=== PATIENT | female | born 1940 | race Caucasian/White ===

== ENCOUNTER 2021-10-15 20:46 | Emergency (ER) | payer MEDICARE, OTHER ==
[~2021-10-15] VITALS: Ht 165.1 cm; Wt 63.2 kg
[2021-10-15 21:17] VITALS: TEMP 97.1
[2021-10-15 22:27] LABS: BASO % 0.4 % (0.0-2.0); EOS # 0.1 K/mm3 (0.0-0.7); EOS % 1.3 % (0.0-4.0); GRAN # 5.3 K/mm3 (1.4-6.5); GRAN % 74.6 % (42.2-75.2); HEMOGLOBIN 11.2 g/dl (12.5-16.0); LYMPH % 14.7 % (20.0-51.0); MEAN CELL VOLUME 89 fl (80.0-100.0); MEAN CORPUSCULAR HEMOGLOBIN 30 pg (27-31); MEAN CORPUSCULAR HGB CONC 34 g/dl (33.0-37.0); MEAN PLATELET VOLUME 10.2 fl (7.4-10.4); MONO # 0.6 K/mm3 (0.1-0.6); MONO % 8.9 % (1.7-9.3); PLATELET COUNT 286 K/mm3 (130-400); RED BLOOD COUNT 3.74 M/mm3 (4.10-5.30); REDCELL DISTRIBUTION WIDTH-CV 12.7 % (11.5-14.5)
[2021-10-15 22:29] LABS: HEMATOCRIT 33.4 % (37.0-47.0)
[2021-10-15 22:39] LABS: ALBUMIN 3.3 gm/dL (3.4-4.8); BILIRUBIN,TOTAL 0.4 mg/dL (0.2-1.2); CALCIUM 8.3 mg/dL (8.4-10.2); CREATININE, serum 0.82 mg/dL (0.57-1.11); POTASSIUM 4.3 mmol/L (3.5-4.5); TOTAL PROTEIN 5.7 gm/dL (6.2-8.1)
[2021-10-16 00:31] LABS: COLLECTION METHOD CLEAN CATCH
[2021-10-16 00:44] LABS: PH 7 (5-8); SQUAMOUS EPITHELIAL None Seen /hpf (0-10); URINE APPEARANCE Clear (CLEAR/HAZY); URINE BACTERIA None Seen /hpf (NONE SEEN); URINE BILIRUBIN Negative (NEGATIVE); URINE BLOOD Negative (NEGATIVE); URINE COLOR Yellow (YELLOW); URINE GLUCOSE Negative (NEGATIVE); URINE KETONE Trace (NEGATIVE); URINE LEUKOCYTE ESTERASE Negative (NEGATIVE); URINE NITRATE Negative (NEGATIVE); URINE PROTEIN(semi-quant) Negative (NEGATIVE); URINE RBC None Seen /hpf (0-2); URINE UROBILINOGEN Negative (NEGATIVE)
[2021-10-16] MEDS ORDERED: NORCO 325 MG-51 TAB PO ×2 (01:49→02:05)
[2021-10-16] MEDS ORDERED: ZOFRAN ODT4 MG PO (02:19)
[2021-10-16 02:30] VITALS: BP 138/80; PULSE 78
[2021-10-17] MEDS ORDERED: HCTZ12.5TAB PO (15:29)
[2021-10-17] MEDS ORDERED: ZOCOR 40MG40 MG PO (15:29)
== END 2021-10-16 02:30 | disposition home or self-care (01) ==
LOC: COL.ER 20:46
PROVIDERS: Nurse Practitioner Family
DX: R10.33 Periumbilical pain (principal); R19.7 Diarrhea, unspecified; R11.0 Nausea
CPT/HCPCS: J2405; J7030

== ENCOUNTER 2021-10-17 14:42 | Day surgery (SDC) | payer MEDICARE, OTHER ==
[~2021-10-17] VITALS: Ht 165.1 cm; Wt 65.5 kg
[~2021-10-17 14:42] MED LIST: NORCO 325 MG-51 TAB PO; ZOFRAN ODT4 MG PO
[2021-10-17 14:56] VITALS: BP 121/71; PULSE 58; TEMP 98
[2021-10-17] MEDS ORDERED: ZOCOR 40MG40 MG PO (15:29)
[2021-10-17] MEDS ORDERED: HCTZ12.5TAB PO (15:29)
[2021-10-17 15:55] VITALS: BP 108/66; PULSE 59
[2021-10-17 16:10] VITALS: BP 120/70; PULSE 62
[2021-10-17 16:40] VITALS: BP 113/64; PULSE 65
--- NOTE | 2021-10-17 16:45 | NUR ---
1555: Patient arrived back into [facility] following endo procedure. Report received from IRINA Ram. Patient alert and awake. Requesting water and crackers. Vital signs stable. Call light left within reach. 1625: MD in to see patient 1630: Patient tolerated food and drink well. Meets discharge criteria went through discharge instructions with patient. Questions answered. IV removed without complications. Patient escorted to patient entrance via wheelchair.
== END 2021-10-17 16:45 | disposition home or self-care (01) ==
LOC: SDCO 14:42
DX: K29.80 Duodenitis without bleeding (principal); K25.7 Chronic gastric ulcer without hemorrhage or perforation; R19.7 Diarrhea, unspecified
CPT/HCPCS: J2704; J7030

== ENCOUNTER → 2021-10-23 | Outpatient (CLI) | payer MEDICARE, OTHER ==
[~2021-10-23] MED LIST changes: +CALCIUM 600MG+D1 TAB PO; +CORTISPORIN OTI10 M2 OU; +HCTZ12.5TAB PO; +PROTONIX 40MG T40 MG PO; +TURMERIC500 MG PO; +ZOCOR 40MG40 MG PO
== END ==
LOC: COL.RAD 06:27
DX: R10.11 Right upper quadrant pain (principal)
CPT/HCPCS: A9537

== ENCOUNTER 2021-10-24 06:28 | Day surgery (SDC) | payer MEDICARE, OTHER ==
[~2021-10-24] VITALS: Ht 165.1 cm; Wt 61.3 kg
[~2021-10-24 06:28] MED LIST changes: -CALCIUM 600MG+D1 TAB PO; -CORTISPORIN OTI10 M2 OU; -PROTONIX 40MG T40 MG PO; -TURMERIC500 MG PO
[2021-10-24 06:39] VITALS: BP 100/69; PULSE 64; TEMP 97.9
[2021-10-24] MEDS ORDERED: CALCIUM 600MG+D1 TAB PO (06:54)
[2021-10-24] MEDS ORDERED: PROTONIX 40MG T40 MG PO (06:55)
[2021-10-24] MEDS ORDERED: CORTISPORIN OTI10 M2 OU (06:56)
[2021-10-24] MEDS ORDERED: TURMERIC500 MG PO (06:56)
[2021-10-24 08:10] VITALS: BP 94/70; PULSE 56; TEMP 98.6
--- NOTE | 2021-10-24 08:10 | NUR ---
RECIEVED FROM ENDO LAB VIA CART TO [facility], PT WALKED TO CHAIR, AWAKE AND ALERT. NO C/O, CALL LIGHT IN REACH. TAKES TEA AND CRACKERS
[2021-10-24 08:25] VITALS: BP 98/63; PULSE 52
--- NOTE | 2021-10-24 08:25 | NUR ---
INTO SEE PT AND TALKED WITH HER, CALLED DAUGHTER AND SPEAKER PHONE ALSO, WITH RESULTS AND INSTRUCTIONS
[2021-10-24 08:40] VITALS: BP 104/63; PULSE 52
--- NOTE | 2021-10-24 08:40 | NUR ---
IV D'CD INTACT, REVIEWED DISCHARGE INST. WITH PT ON IMMODIUM DOSE, DIVERTICULOSIS HANDAOUTS, MODERATE SEDATION AND RECOMMENDATIONS WITH VERBAL UNDERSTANDING. PT UP AND DRESSED, AND DISCHARGED VIA W/C TO CAR AT 0900
--- NOTE | 2021-10-24 09:23 | NUR ---
Initial visit; Patient requested prayer. Energy Conservation Technician offered prayer prior to her 'Procedure'. 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
== END 2021-10-24 09:00 | disposition home or self-care (01) ==
LOC: SDCO 06:28
DX: K52.832 Lymphocytic colitis (principal); K62.89 Other specified diseases of anus and rectum; K57.30 Diverticulosis of large intestine without perforation or abscess without bleeding; R19.7 Diarrhea, unspecified; R19.4 Change in bowel habit; Z79.1 Long term (current) use of non-steroidal anti-inflammatories (NSAID)
CPT/HCPCS: J2704; J7120

== ENCOUNTER → 2021-11-21 | Outpatient (CLI) | payer MEDICARE, OTHER ==
[~2021-11-21] VITALS: Ht 165.1 cm; Wt 63.0 kg
[~2021-11-21] MED LIST changes: +CALCIUM 600MG+D1 TAB PO; +CORTISPORIN OTI10 M2 OU; +PROTONIX 40MG T40 MG PO; +TURMERIC500 MG PO
== END ==
LOC: COL.CLI 09:51
DX: K52.9 Noninfective gastroenteritis and colitis, unspecified (principal); R19.4 Change in bowel habit